=== PATIENT | female | born 1990 | race Caucasian/White ===

== ENCOUNTER 2024-01-21 18:50 | Observation (INO) | payer OTHER ==
[~2024-01-21] VITALS: Ht 154.9 cm; Wt 78.5 kg
[2024-01-21] MEDS ORDERED: LACTATED RINGERS 500 ML IV ONE (19:20)
[2024-01-21] MEDS: LACTATED RINGERS 1,000 ML IV SCH (19:34)
[2024-01-21] MEDS: TERBUTALINE 1 MG/ML VIAL SUBQ SCH (19:50)
== END 2024-01-21 20:56 | disposition home or self-care (01) ==
LOC: MLD 18:50
PROVIDERS: ADMIT Obstetrics & Gynecology; ATTEND Obstetrics & Gynecology
DX: O36.8130 Decreased fetal movements, third trimester, not applicable or unspecified (principal); Z3A.41 41 weeks gestation of pregnancy
CPT/HCPCS: 96360; G0378